=== PATIENT | female | born 1945 | race Caucasian/White ===

== ENCOUNTER 2019-05-19 21:53 | Inpatient (IN) | payer MEDICARE ==
[~2019-05-19 21:53] MED LIST: Iopamidol-370 76% 500 ML 1 ML ONE
[2019-05-19] MEDS ORDERED: Fentanyl 100 MCG/2 ML VIAL ONE (22:15)
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
[2019-05-19 22:30] LABS: #Basophils 0.1 thou/uL (0.0-0.2); #Eosinphils 0.1 thou/uL (0.0-0.7); #Lymphocytes 2.4 thou/uL (1.20-3.40); #Monocytes 1.2 thou/uL (0.11-0.59); #Neutrophils 14.3 thou/uL (1.40-6.50); %Basophils 0.4 % (0.0-1.0); %Eosinophils 0.4 % (0.0-10.0); %Lymphocytes 13.5 % (21.0-51.0); %Monocytes 6.4 % (0.0-10.0); %Neutrophils 79.3 % (42.0-75.0); Hemoglobin 13.2 g/dL (12.0-16.0); INR-International Normal Ratio 1.1; Mean Corpuscular HGB CONC 32.9 g/dL (32.0-36.0); Mean Corpuscular Hemoglobin 31.5 pg (27.0-31.0); Mean Corpuscular Volume 95.8 fL (78.0-98.0); Mean Platelet Volume 9.7 fL (7.4-10.4); Platelet Count 197 thou/uL (130-400); RBC Distribution Width 12.4 % (11.5-14.5); Red Blood Cell (RBC) Count 4.19 mill/uL (4.20-5.40)
[2019-05-19 22:31] LABS: PTT 28.3 SEC (22.9-36.1)
[2019-05-19 22:39] LABS: ALT (SGPT) 181 U/L (8-55); AST (SGOT) 259 U/L (5-34); Albumin 3.7 g/dL (3.4-4.8); Alcohol Less than 10 mg/dL (Less than 10); Alkaline Phosphatase 107 U/L (40-110); Anion Gap 13 mmol/L (10-20); BUN (Urea Nitrogen) 24 mg/dL (9.8-20.1); Bilirubin, Total 0.2 mg/dL (0.2-1.2); Calc. Creatinine Clearance 0 mL/min (70-130); Calcium 8.2 mg/dL (7.8-10.44); Carbon Dioxide 24 mmol/L (23-31); Chloride 105 mmol/L (98-107); Estimated GFR-MDRD 54; Globulin 2.5 g/dL (2.4-3.5); Glucose 153 mg/dL (83-110); Lipase 176 U/L (8-78); Potassium 3.6 mmol/L (3.5-5.1); Protein, Total 6.2 g/dL (6.0-8.3); Sodium 138 mmol/L (136-145)
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
[2019-05-19] MEDS ORDERED: Adacel (T-DAP) 0.5 ML SYRINGE ONE (22:49)
[2019-05-19] MEDS ORDERED: Morphine 4 MG/ML VIAL ONE (22:49)
[2019-05-19 23:03] LABS: Base Excess-Venous -2.6 mmol/L (-2.0 to 3.0); Bicarbonate (HCO3v) 23.9 mmol/L (22.0-28.0); CO2 Tension (PvCO2) 47.6 mmHg (40.0-50.0); Calcium, Ionized 1.09 mmol/L (See Comments:); Chloride 103 mmol/L (98-107); Hemoglobin - Calc 12.1 g/dL (12.0-16.0); Potassium 3.5 mmol/L (3.5-5.1); Sodium 139 mmol/L (138-145); T. Carbon Dioxide 25.4 mmol/L (22.0-28.0); vO2 Saturation-calc 80.6 % (60.0-85.0)
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
[2019-05-19] MEDS ORDERED: Ondansetron PF 4 MG/2 ML Vial ONE (23:17)
[2019-05-19] MEDS ORDERED: Dextrose 5% in Water 1,000 ML IV PRN (23:57)
[2019-05-19] MEDS ORDERED: Dextrose 50% Abboject 50 ML SYRINGE SLOW IVP PRN (23:57)
[2019-05-19] MEDS ORDERED: Ondansetron ODT 4 MG TAB PO PRN (23:57)
[2019-05-19] MEDS ORDERED: Morphine 2 MG/ML SYRINGE SLOW IVP PRN (23:57)
[2019-05-19] MEDS ORDERED: hydrALAZINE 20 MG/ML VIAL SLOW IVP PRN (23:57)
[2019-05-20] MEDS ORDERED: Albuterol Sulfate 1.25 MG/3 ML NEB NEB PRN (00:10)
[2019-05-20 00:24] LABS: Lactic Acid 1.2 mmol/L (0.5-2.2)
[2019-05-20 00:27] LABS: Bacteria/HPF None Seen HPF (None Seen); Bilirubin Negative (Negative); Blood, Urine 3+ (Negative); Clarity Turbid (Clear); Glucose, Urine (Dipstick) Normal (Negative); Leukocyte Negative Leu/uL (Negative); Nitrite Negative (Negative); Protein, Urine (Dipstick) 50 mg/dL (Neg-Trace); RBC/HPF Greater than 50 HPF (0-3); Squamous Epithelial 0-3 HPF (0-3); Urobilinogen Normal mg/dL (Less than 2); WBC/HPF 0-3 HPF (0-3)
[2019-05-20] MEDS ORDERED: Morphine 2 MG/ML SYRINGE SLOW IVP PRN (00:27)
[2019-05-20 00:30] LABS: Magnesium 1.7 mg/dL (1.6-2.6); Phosphorus 3.5 mg/dL (2.3-4.7)
[2019-05-20] MEDS ORDERED: Magnesium 2 GM/50 ML 2 GM in Premix Bag 1 BAG IVPB SCH (00:45)
[2019-05-20] MEDS ORDERED: Potassium Phosphate 15 MMOL in Sodium Chloride 0.9% 100 ML IVPB SCH ×2 (00:45→04:00)
[2019-05-20] MEDS ORDERED: Lidocaine 1% w/Epinephrine 1:100K 20 ML VIAL ONE (00:53)
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
[2019-05-20 02:39] VITALS: BMI 23.5
[2019-05-20] MEDS: Sodium Chloride 0.9% 1,000 ML IV SCH ×3 (03:01→21:39)
[2019-05-20] MEDS: Morphine 4 MG/ML VIAL SLOW IVP PRN ×4 (03:02→13:16)
[2019-05-20 04:19] LABS: #Eosinphils 0.1 thou/uL (0.0-0.7); #Monocytes 1.5 thou/uL (0.11-0.59); #Neutrophils 13.5 thou/uL (1.40-6.50); %Eosinophils 0.4 % (0.0-10.0); %Monocytes 9.2 % (0.0-10.0); %Neutrophils 84.5 % (42.0-75.0); Hemoglobin 11.9 g/dL (12.0-16.0); Mean Corpuscular HGB CONC 33.3 g/dL (32.0-36.0); Mean Corpuscular Volume 96.1 fL (78.0-98.0); Mean Platelet Volume 9.2 fL (7.4-10.4); Platelet Count 153 thou/uL (130-400); RBC Distribution Width 12.4 % (11.5-14.5); Red Blood Cell (RBC) Count 3.71 mill/uL (4.20-5.40); White Blood Cell (WBC) Count 15.9 thou/uL (4.8-10.8)
[2019-05-20 04:35] LABS: Lactic Acid 1.6 mmol/L (0.5-2.2)
[2019-05-20 04:39] LABS: Anion Gap 14 mmol/L (10-20); BUN (Urea Nitrogen) 27 mg/dL (9.8-20.1); Calc. Creatinine Clearance 62 mL/min (70-130); Calcium 8.1 mg/dL (7.8-10.44); Carbon Dioxide 20 mmol/L (23-31); Chloride 108 mmol/L (98-107); Estimated GFR-MDRD 70; Glucose 152 mg/dL (83-110); Potassium 3.8 mmol/L (3.5-5.1); Sodium 138 mmol/L (136-145)
[2019-05-20] MEDS: Albuterol Sulfate 1.25 MG/3 ML NEB NEB SCH ×3 (08:03→22:18)
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
[2019-05-20] MEDS: Famotidine/PF 20 mg/2ml Vial SLOW IVP SCH ×2 (08:51→20:26)
[2019-05-20] MEDS ORDERED: Lidocaine 5% Patch TD SCH ×2 (09:00→23:00)
[2019-05-20 10:28] LABS: #Lymphocytes 0.9 thou/uL (1.20-3.40); #Monocytes 1.2 thou/uL (0.11-0.59); #Neutrophils 9.8 thou/uL (1.40-6.50); %Basophils 0.2 % (0.0-1.0); %Eosinophils 0.3 % (0.0-10.0); %Lymphocytes 7.8 % (21.0-51.0); %Monocytes 10.1 % (0.0-10.0); %Neutrophils 81.6 % (42.0-75.0); Hemoglobin 11.3 g/dL (12.0-16.0); Mean Corpuscular HGB CONC 33.3 g/dL (32.0-36.0); Mean Corpuscular Hemoglobin 31.7 pg (27.0-31.0); Mean Corpuscular Volume 95.3 fL (78.0-98.0); Mean Platelet Volume 9.5 fL (7.4-10.4); Platelet Count 138 thou/uL (130-400); RBC Distribution Width 12.4 % (11.5-14.5); Red Blood Cell (RBC) Count 3.56 mill/uL (4.20-5.40)
[2019-05-20] MEDS: traMADol HCl 50 MG TAB PO SCH ×3 (11:54→22:54)
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
[2019-05-20] MEDS ORDERED: traMADol HCl 50 MG TAB PO PRN (12:44)
[2019-05-20] MEDS ORDERED: Acetaminophen 500 MG TAB PO SCH (12:45)
[2019-05-20] MEDS ORDERED: traMADol HCl 50 MG TAB PO SCH (12:45)
[2019-05-20] MEDS: Cyclobenzaprine 10 MG TAB PO PRN (13:42)
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
[2019-05-20] MEDS: Gabapentin 300 MG CAP PO SCH ×2 (15:00→20:26)
[2019-05-20 15:50] LABS: #Basophils 0.1 thou/uL (0.0-0.2); #Eosinphils 0.1 thou/uL (0.0-0.7); #Lymphocytes 1.4 thou/uL (1.20-3.40); #Monocytes 1.2 thou/uL (0.11-0.59); #Neutrophils 8.5 thou/uL (1.40-6.50); %Basophils 0.5 % (0.0-1.0); %Eosinophils 0.6 % (0.0-10.0); %Lymphocytes 12.1 % (21.0-51.0); %Neutrophils 75.8 % (42.0-75.0); Hemoglobin 10.8 g/dL (12.0-16.0); Mean Corpuscular HGB CONC 33.1 g/dL (32.0-36.0); Mean Corpuscular Hemoglobin 31.7 pg (27.0-31.0); Mean Corpuscular Volume 95.8 fL (78.0-98.0); Mean Platelet Volume 9.1 fL (7.4-10.4); Platelet Count 125 thou/uL (130-400); RBC Distribution Width 12.7 % (11.5-14.5); White Blood Cell (WBC) Count 11.2 thou/uL (4.8-10.8)
[2019-05-20 22:13] LABS: #Basophils 0.1 thou/uL (0.0-0.2); #Eosinphils 0.1 thou/uL (0.0-0.7); #Lymphocytes 1.3 thou/uL (1.20-3.40); #Monocytes 1.1 thou/uL (0.11-0.59); #Neutrophils 9.2 thou/uL (1.40-6.50); %Basophils 0.5 % (0.0-1.0); %Eosinophils 0.6 % (0.0-10.0); %Lymphocytes 11.4 % (21.0-51.0); %Monocytes 9.2 % (0.0-10.0); %Neutrophils 78.4 % (42.0-75.0); Hemoglobin 9.9 g/dL (12.0-16.0); Mean Corpuscular HGB CONC 33.1 g/dL (32.0-36.0); Mean Corpuscular Hemoglobin 32.1 pg (27.0-31.0); Mean Corpuscular Volume 96.9 fL (78.0-98.0); Mean Platelet Volume 9.1 fL (7.4-10.4); Platelet Count 113 thou/uL (130-400); RBC Distribution Width 12.4 % (11.5-14.5); Red Blood Cell (RBC) Count 3.07 mill/uL (4.20-5.40); White Blood Cell (WBC) Count 11.7 thou/uL (4.8-10.8)
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
[2019-05-21] MEDS: Morphine 4 MG/ML VIAL SLOW IVP PRN (03:54)
[2019-05-21 04:15] LABS: #Basophils 0.1 thou/uL (0.0-0.2); #Eosinphils 0.1 thou/uL (0.0-0.7); #Lymphocytes 1.2 thou/uL (1.20-3.40); #Neutrophils 7.2 thou/uL (1.40-6.50); %Basophils 0.6 % (0.0-1.0); %Eosinophils 0.8 % (0.0-10.0); %Lymphocytes 12.6 % (21.0-51.0); %Monocytes 10.2 % (0.0-10.0); %Neutrophils 75.7 % (42.0-75.0); Hemoglobin 9.7 g/dL (12.0-16.0); Mean Corpuscular HGB CONC 33.5 g/dL (32.0-36.0); Mean Corpuscular Hemoglobin 32.2 pg (27.0-31.0); Mean Corpuscular Volume 96.2 fL (78.0-98.0); Mean Platelet Volume 9.8 fL (7.4-10.4); Platelet Count 99 thou/uL (130-400); RBC Distribution Width 12.5 % (11.5-14.5); White Blood Cell (WBC) Count 9.5 thou/uL (4.8-10.8)
[2019-05-21 04:31] LABS: Anion Gap 10 mmol/L (10-20); BUN (Urea Nitrogen) 20 mg/dL (9.8-20.1); Calc. Creatinine Clearance 80 mL/min (70-130); Calcium 7.7 mg/dL (7.8-10.44); Carbon Dioxide 24 mmol/L (23-31); Chloride 106 mmol/L (98-107); Estimated GFR-MDRD Greater than 90; Glucose 100 mg/dL (83-110); Magnesium 1.9 mg/dL (1.6-2.6); Phosphorus 2.2 mg/dL (2.3-4.7); Potassium 3.6 mmol/L (3.5-5.1); Sodium 136 mmol/L (136-145)
[2019-05-21] MEDS: Sodium Chloride 0.9% 1,000 ML IV SCH ×2 (05:02→16:03)
[2019-05-21] MEDS: traMADol HCl 50 MG TAB PO SCH ×2 (05:02→14:11)
[2019-05-21] MEDS: Albuterol Sulfate 1.25 MG/3 ML NEB NEB SCH ×2 (06:57→15:29)
[2019-05-21] MEDS: Famotidine/PF 20 mg/2ml Vial SLOW IVP SCH (08:18)
[2019-05-21] MEDS: Cyclobenzaprine 10 MG TAB PO PRN (08:18)
[2019-05-21] MEDS: Gabapentin 300 MG CAP PO SCH ×2 (08:19→14:12)
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
[2019-05-21] MEDS ORDERED: Famotidine 20 MG TAB PO SCH (09:00)
[2019-05-21] MEDS ORDERED: Calcium Gluc 4.6 MEQ/10 ML (100 MG/ML) SLOW IVP ONE (09:08)
[2019-05-21] MEDS ORDERED: Magnesium Sulfate 2 GM in Sodium Chloride 0.9% 100 ML IVPB SCH (09:15)
[2019-05-21] MEDS ORDERED: Potassium Phosphate 30 MMOL, Magnesium Sulfate 2 GM in Sodium Chloride 0.9% 250 ML 250 ML IVPB SCH (09:15)
[2019-05-21] MEDS ORDERED: Potassium Phosphate 30 MMOL in Sodium Chloride 0.9% 500 ML IVPB SCH (09:15)
[2019-05-21] MEDS ORDERED: Calcium Gluconate 4.6 MEQ in Sodium Chloride 0.9% 100 ML IVPB SCH (09:15)
[2019-05-21] MEDS ORDERED: Sodium Chloride 0.9% 500 ML IV SCH (09:45)
--- NOTE | 2019-05-21 10:01 | RAD ---
CHEST 1 VIEW: HISTORY: Followup pleural effusion. COMPARISON: 05/20/2019. FINDINGS: Monitor leads overlie the chest. Stable pleural and parenchymal opacity changes in both lung bases. Upper mid lung zones are clear. IMPRESSION: Stable pleural and parenchymal opacity changes bilaterally. POS: [facility]
[2019-05-21] MEDS ORDERED: Lidocaine Patch Removal 1 EACH TOP SCH ×2 (11:00→21:00)
[2019-05-21] MEDS ORDERED: Iopamidol-370 76% 500 ML 1 ML ONE (11:53)
[2019-05-21] MEDS ORDERED: Acetaminophen 325 MG TAB PO SCH (12:00)
[2019-05-21] MEDS ORDERED: Fentanyl 100 MCG/2 ML VIAL SLOW IVP PRN (14:49)
--- NOTE | 2019-05-21 15:16 | CT ---
CT ABDOMEN AND PELVIS WITH IV CONTRAST: HISTORY: Follow up grade 4 liver injury. COMPARISON: 05/19/2019 FINDINGS: There has been mild interval increase in the size of the right pleural effusion since the last exam w ith adjacent atelectatic change. Atelectatic change is also seen at the left lung base. The laceration in the liver parenchyma is again seen with interval increase in the size of the hemato ma adjacent to it. No active extravasation is seen. There is perihepatic fluid prominently posterior to the liver. No pneumothorax is seen. The spleen, pancreas, adrenal glands and kidneys are intact. There is a Alex catheter in the urinary bladder. No contrast extravasation or active bleeding is seen on the current study. Hematoma in the right gluteal fat is again noted. Pelvic fractures are again seen. IMPRESSION: Re-demonstration of the grade 4 laceration of the liver with interval increase in the size of the adj acent hematoma and development of perihepatic fluid. No evidence of acute extravasation. POS: [facility]
[2019-05-21 15:22] LABS: Hemoglobin 9.2 g/dL (12.0-16.0)
[2019-05-21 15:54] VITALS: TEMP 98.1
[2019-05-21 16:09] VITALS: BP 124/77
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
== END 2019-05-21 17:23 | disposition short-term general hospital (02) | DRG 964 ==
LOC: ERS 21:53 → CCU 05-20 02:16
PROVIDERS: ADMIT Specialist; ATTEND Specialist
PROC: 0HQ1XZZ Repair Face Skin, External Approach (ICD-10-PCS; principal; 2019-05-20)
DX: S22.41XA Multiple fractures of ribs, right side, initial encounter for closed fracture (principal); S36.116A Major laceration of liver, initial encounter; J90 Pleural effusion, not elsewhere classified; S32.592A Other specified fracture of left pubis, initial encounter for closed fracture; S32.591A Other specified fracture of right pubis, initial encounter for closed fracture; S32.10XA Unspecified fracture of sacrum, initial encounter for closed fracture; S27.808A Other injury of diaphragm, initial encounter; S02.2XXA Fracture of nasal bones, initial encounter for closed fracture; I10 Essential (primary) hypertension; F32.9 Major depressive disorder, single episode, unspecified; G89.29 Other chronic pain; M54.2 Cervicalgia; M19.90 Unspecified osteoarthritis, unspecified site; S42.021A Displaced fracture of shaft of right clavicle, initial encounter for closed fracture; R40.2413 Glasgow coma scale score 13-15, at hospital admission; S01.81XA Laceration without foreign body of other part of head, initial encounter; R00.0 Tachycardia, unspecified; K44.9 Diaphragmatic hernia without obstruction or gangrene; S22.5XXA Flail chest, initial encounter for closed fracture; V89.2XXA Person injured in unspecified motor-vehicle accident, traffic, initial encounter; Z90.710 Acquired absence of both cervix and uterus; Z90.49 Acquired absence of other specified parts of digestive tract; Z98.1 Arthrodesis status
CPT/HCPCS: 12013; 36415; 51702; 70450; 71045; 71260; 72125; 72170; 74177; 80048; 80053; 80307; 81003; 81015; 82330; 82803; 83605; 83690; 83735; 84100; 85025; 85610; 86850; 86900; 86901; 90471; 90715; 93005; 94640; 94760; 96361; 96374; 96375; 99292; G0390; J2270; J2405; J3010; J3475; J3490; J7050; Q9967; S0028